=== PATIENT | male | born 1980 ===

== ENCOUNTER 2018-02-02 12:45 | Emergency (ER) | payer MEDICAID, OTHER ==
[2018-02-02 13:00] VITALS: BP 125/85; PULSE 78; RESP 16; TEMP 97; O2SAT 100
--- NOTE | 2018-02-02 13:13 | ED PDOC ---
HPI: General Adult Time Seen by Provider: 02/02/18 12:50 Chief Complaint (Nursing): Lower Extremity Problem/Injury Chief Complaint (Provider): Knee Pain History Per: Patient, Family ( is translating for patient in Jamaican) Onset/Duration Of Symptoms: Days (x 3 weeks) Current Symptoms Are (Timing): Still Present Additional Complaint(s): 37 year old male presents to the emergency department complaining of left knee pain for 3 weeks. Patient states he slipped and fell on ice 3 weeks ago, and did not seek medical attention at that time. He reports taking Motrin without improvement. Patient is able to bend the knee and ambulate with pain. No medications for pain were taken today. No changes in sensation. PMD: None Past Medical History Reviewed: Historical Data, Nursing Documentation, Vital Signs Vital Signs: Last Vital Signs Temp 97 F L 02/02/18 12:47 Pulse 78 02/02/18 12:47 Resp 16 02/02/18 12:47 BP 125/85 02/02/18 12:47 Pulse Ox 100 02/02/18 13:18 - Medical History PMH: No Chronic Diseases - Surgical History Other surgeries: Right arm surgery - Family History Family History: States: No Known Family Hx - Living Arrangements Living Arrangements: With Family - Social History Current smoker - smoking cessation education provided: Yes Alcohol: None Drugs: Denies - Home Medications Home Medications: Ambulatory Orders Medication Instructions Recorded Alprazolam [Xanax] 0.25 mg PO BID 10/10/14 Ibuprofen [Motrin] 600 mg PO Q8 #20 tab 11/02/15 Cyclobenzaprine [Cyclobenzaprine 10 mg PO TID PRN #20 tab 02/02/18 HCl] Nabumetone [Relafen] 500 mg PO BID #20 tab 02/02/18 - Allergies Allergies/Adverse Reactions: Allergies Allergy/AdvReac Type Severity Reaction Status Date / Time No Known Allergies Allergy Verified 02/02/18 12:47 Review of Systems ROS Statement: Except As Marked, All Systems Reviewed And Found Negative Musculoskeletal: Positive for: Other (Left knee pain) Neurological: Negative for: Weakness, Numbness Physical Exam - Reviewed Nursing Documentation Reviewed: Yes Vital Signs Reviewed: Yes - Physical Exam Appears: Positive for: Well, Non-toxic, No Acute Distress Head Exam: Positive for: ATRAUMATIC, NORMAL INSPECTION, NORMOCEPHALIC Skin: Positive for: Normal Color. Negative for: Rash Eye Exam: Positive for: Normal appearance Extremity: Positive for: Tenderness (Mild tenderness to the medial aspect of left knee on palpation, full ROM with pain, minimal swelling, no ecchymosis). Negative for: Calf Tenderness, Deformity Neurologic/Psych: Positive for: Alert, Oriented - ECG O2 Sat by Pulse Oximetry: 100 (RA) Pulse Ox Interpretation: Normal - Other Rad Left knee x-ray X-Ray: Interpreted by Me, Viewed By Me X-Ray Interpretation: no fx, no dis Medical Decision Making Medical Decision Making: Impression: 37 year old with knee pain Time: 12:58 Initial Plan: --X-Ray of the left knee --Toradol 30 mg IM Patient is aware of x-ray results. All questions answered. Patient was given crutches and was instructed on proper use. Knee immobilizer applied to left knee. Prescriptions for Relafen and Flexeril provided. Patient was referred to clinic and orthopedist on-call. Scribe Attestation: Documented by Melba Mckeon, acting as a scribe for Nitza Orozco PA-C Provider Scribe Attestation: All medical record entries made by the Scribe were at my direction and personally dictated by me. I have reviewed the chart and agree that the record accurately reflects my personal performance of the history, physical exam, medical decision making, and the department course for this patient. I have also personally directed, reviewed, and agree with the discharge instructions and disposition. Procedures - Splinting Location: left knee Pre-Made Type: knee immobilizer Pre-Proc Neuro Vasc Exam: normal Post-Proc Neuro Vasc Exam: normal Disposition - Clinical Impression Clinical Impression: Knee sprain - Patient ED Disposition Is Patient to be Admitted: No Counseled Patient/Family Regarding: Studies Performed, Diagnosis, Need For Followup, Rx Given - Disposition Referrals: Clint Gutierres MD [Staff Provider] - [facility] [Outside] Disposition: Routine/Home Disposition Time: 13:39 Condition: STABLE Additional Instructions: Prescription meds as directed as needed for pain. Ice, rest and elevate affected area. Follow-up with clinic or orthopedist in 2-3 days. Prescriptions: Cyclobenzaprine [Cyclobenzaprine HCl] 10 mg PO TID PRN #20 tab PRN Reason: Muscle Spasm Nabumetone [Relafen] 500 mg PO BID #20 tab Instructions: Knee Sprain (DC) Forms: [employer] (Jamaican), [facility] ED School/Work Excuse Print Language: MAORI
--- NOTE | 2018-02-02 14:15 | RAD ---
PROCEDURE: Left Knee Radiographs. HISTORY: Pain. COMPARISON: None. FINDINGS: BONES: Normal. No fracture. JOINTS: Normal. No osteoarthritis. JOINT EFFUSION: None. OTHER FINDINGS: None. IMPRESSION: Normal radiographs of the left knee.
== END 2018-02-02 14:03 | disposition home or self-care (01) ==
LOC: H.ER 12:45
DX: S83.92XA Sprain of unspecified site of left knee, initial encounter (principal); W00.0XXA Fall on same level due to ice and snow, initial encounter; Y92.89 Other specified places as the place of occurrence of the external cause
CPT/HCPCS: 29530; 73562; 96372; 99284; J1885

== ENCOUNTER 2019-02-13 09:50 | Emergency (ER) | payer MEDICAID, OTHER ==
[2019-02-13 10:03] VITALS: BMI 20.2
[2019-02-13 10:04] VITALS: TEMP 98.8; O2SAT 99
[2019-02-13] MEDS ORDERED: Lidocaine 5% Patch TD STA (10:30)
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
[2019-02-13] MEDS ORDERED: Lidocaine 5% Patch TD ONE (10:51)
[2019-02-13 11:15] LABS: BARBITURATES, UR NEGATIVE (NEGATIVE); BENZODIAZEPINES, UR NEGATIVE (NEGATIVE); OPIATES, UR NEGATIVE (NEGATIVE); PHENCYCLIDINE, UR NEGATIVE (NEGATIVE)
[2019-02-13 13:19] VITALS: BP 110/70; PULSE 68; RESP 18
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
== END 2019-02-13 13:02 | disposition home or self-care (01) ==
LOC: H.ER 09:50
DX: M54.2 Cervicalgia (principal)
CPT/HCPCS: 72040; 96372; 99283; G0480; J1885